=== PATIENT | male | born 1945 | race Caucasian/White ===

== ENCOUNTER 2019-12-06 07:40 | Outpatient (CLI) | payer MEDICARE, OTHER, SELFPAY ==
--- NOTE | 2019-12-06 08:15 | XRR_ITS ---
PROCEDURE INFORMATION: Exam: XR Abdomen, 1 View Exam date and time: 12/06/2019 7:47 AM Age: 74 years old Clinical indication: Condition or disease; Other: Calculus of kidney and ureter TECHNIQUE: Imaging protocol: XR of the abdomen. Views: Frontal supine view of the abdomen. 1 View. COMPARISON: CR XR KUB [id number] 09/07/2019 8:01 AM FINDINGS: Gastrointestinal tract: Unremarkable. No bowel dilation. Vasculature: Right pelvic phleboliths. Bones/joints: Bilateral lower lumbar facet primary osteoarthritis. L4-L5 and L5-S1 degenerative disc disease. Lumbar spine vertebral body marginal osteophytes are noted at multiple levels. XR/XR KUB [id number] IMPRESSION: No acute abdominal or pelvic abnormality identified.
== END 2019-12-06 07:41 | disposition home or self-care (01) ==
LOC: RAD 07:44
PROVIDERS: Family Provider Internal Medicine; PCP Internal Medicine; Visit Provider Urology
DX: N20.2 Calculus of kidney with calculus of ureter (principal)
CPT/HCPCS: 74018; 81001

== ENCOUNTER 2020-07-27 07:35 | Outpatient (CLI) | payer MEDICARE, OTHER, SELFPAY ==
--- NOTE | 2020-07-27 09:00 | XR_ITS ---
WS: [id number] KUB, 07/27/2020 Clinical Data: KIDNEY AND URETER STONE Comparison: KUB, 12/06/2019. Findings: There are bilateral calcifications overlying the kidneys. The detail is obscured by colon gas and fec al material. There is a fecal impaction. Phleboliths are seen in the pelvis. Osteoarthritis of the lumbar vertebral bodies is moderate. XR/XR KUB [id number] Impression: Bilateral calcifications overlying both kidneys unchanged.
== END 2020-07-27 07:36 | disposition home or self-care (01) ==
LOC: RAD 07:40
PROVIDERS: PCP Internal Medicine; Visit Provider Urology
DX: N20.2 Calculus of kidney with calculus of ureter (principal)
CPT/HCPCS: 74018; 81001

== ENCOUNTER 2021-04-10 13:55 | Outpatient (CLI) | payer MEDICARE, OTHER, SELFPAY ==
--- NOTE | 2021-04-10 14:30 | XRR_ITS ---
PROCEDURE INFORMATION: Exam: XR Abdomen Exam date and time: 04/10/2021 2:30 PM Age: 75 years old Clinical indication: Kidney stone follow up; Kidney stones in bilateral kidneys. TECHNIQUE: Imaging protocol: XR of the abdomen. Views: Frontal supine view of the abdomen. 1 View. COMPARISON: CR XR KUB [id number] 07/27/2020 7:42 AM FINDINGS: Bilateral renal stones are again noted. Probable phleboliths in the right pelvis. Nonobstructive bowel gas pattern. Possible cholelithiasis. XR/XR KUB [id number] IMPRESSION: 1. Bilateral renal stones are again noted. 2. Possible cholelithiasis.
== END 2021-04-10 13:56 | disposition home or self-care (01) ==
LOC: RAD 14:00
PROVIDERS: PCP Internal Medicine; Visit Provider Urology
DX: N20.9 Urinary calculus, unspecified (principal)
CPT/HCPCS: 74018; 81003

== ENCOUNTER 2021-10-10 07:29 | Outpatient (CLI) | payer MEDICARE, OTHER, SELFPAY ==
--- NOTE | 2021-10-10 07:37 | XR_ITS ---
WS: [id number] KUB, AP view, 10/10/2021 Clinical Data: CALCULUS OF KIDNEY AND URETER Comparison: KUB, 04/10/2021. Findings: No abnormal intraabdominal masses are seen. There is no dilatated small bowel or evidence of obstruct ion. There are bilateral renal calculi. There is a moderate amount of fecal material. The bladder is full. There are phleboliths in the true pelvis. XR/XR KUB [id number] Impression: Bilateral renal calculi.
== END 2021-10-10 07:30 | disposition home or self-care (01) ==
PROVIDERS: PCP Internal Medicine; Visit Provider Urology
DX: N20.2 Calculus of kidney with calculus of ureter (principal); N40.1 Benign prostatic hyperplasia with lower urinary tract symptoms
CPT/HCPCS: 74018; 81003

== ENCOUNTER 2022-10-10 07:12 | Outpatient (CLI) | payer MEDICARE, OTHER, SELFPAY ==
--- NOTE | 2022-10-10 07:21 | XR_ITS ---
WS: [id number] KUB, AP view, 10/10/2022 Clinical Data: Calculus of Kidney Comparison: KUB, 10/10/2021 Findings: No abnormal intraabdominal masses are seen. There is no dilatated small bowel or evidence of obstruct ion. There are bilateral renal calculi. The kidneys are obscured by overlying bowel gas. There are phlebol iths in the pelvis. XR/XR KUB [id number] Impression: Bilateral renal calculi.
== END 2022-10-10 07:13 | disposition home or self-care (01) ==
LOC: RAD 07:15
PROVIDERS: PCP Internal Medicine; Visit Provider Urology
DX: N40.1 Benign prostatic hyperplasia with lower urinary tract symptoms; N20.2 Calculus of kidney with calculus of ureter
CPT/HCPCS: 74018; 81003; 99213

== ENCOUNTER 2023-01-07 15:38 | Outpatient (CLI) | payer MEDICARE, OTHER, SELFPAY ==
--- NOTE | 2023-01-07 16:01 | XRR_ITS ---
PROCEDURE INFORMATION: Exam: XR Abdomen Exam date and time: 01/07/2023 4:05 PM Age: 77 years old Clinical indication: Generalized; Patient HX: Abdominal pain, for 1 1/2 weeks, HX crohn's disease; Additional info: Generalized abdominal pain TECHNIQUE: Imaging protocol: Radiologic exam of the abdomen. Views: Frontal supine view of the abdomen. 1 View. COMPARISON: CR XR KUB [id number] 10/10/2021 7:47 AM FINDINGS: Gastrointestinal tract: Normal. No bowel dilation. Bones/joints: Unremarkable. Calcified caliceal stones are present in the central left collecting system measuring 5.5 cm. Multiple stones are seen in the lower right renal collecting system largest measures 6.2 mm. No stones are seen in the projected path of the urinary outflow tract. XR/XR abdomen 1V* [id number] IMPRESSION: No acute findings. Calcified urinary tract stones as noted above
== END 2023-01-07 15:39 | disposition home or self-care (01) ==
LOC: RAD 15:44
PROVIDERS: PCP Internal Medicine; Visit Provider Internal Medicine
DX: R10.84 Generalized abdominal pain (principal)
CPT/HCPCS: 74018

== ENCOUNTER → 2023-02-11 07:14 | Outpatient (BNVA) | payer MEDICARE, OTHER, SELFPAY | PROVIDERS: PCP Internal Medicine; Visit Provider Urology | DX: N40.1 Benign prostatic hyperplasia with lower urinary tract symptoms (principal) | CPT/HCPCS: 51741; 51798; 81003; 99213 ==

== ENCOUNTER → 2023-10-27 09:10 | Outpatient (BNVA) | payer MEDICARE, OTHER, SELFPAY | PROVIDERS: PCP Internal Medicine; Visit Provider Podiatrist Foot & Ankle Surgery | DX: L60.3 Nail dystrophy (principal) | CPT/HCPCS: 99203 ==

== ENCOUNTER 2024-01-01 07:02 | Outpatient (CLI) | payer OTHER, SELFPAY ==
--- NOTE | 2024-01-01 | ECG_ITS ---
[facility] Test Date: 2024-01-01 Pat Name: Zak Sanders Department: Room: Gender: Male Supervisor Dumping: : 1945 Requested By: Yoanna Baldwin Order Number: [id number] Gale MD: Jake Juarez M.D. Interpretive Statements NAME OF STUDY: EXERCISE SESTAMIBI STRESS TEST INDICATION: Chest Pain PROCEDURE: The baseline electrocardiogram showed normal sinus rhythm with normal ST-Ts. At the baseline, the patient's blood pressure was 144/80 mm Hg with a heart rate of 58. The patient exercised for 6 minutes on a standard [place] protocol. Patient attained a maximum heart rate of 128 beats per minute(90% of the maximum predicted heart rate) with a blood pressure at the peak exercise of 166/89 mm Hg. The EKG at the peak exercise revealed no significant changes. Patient did not have any chest pain or any significant arrhythmis with the exercise Sestamibi was injected 1 minute prior to the peak exercise During the recovery phase, there were no new changes. Blood pressure at the end of the recovery phase was 183/72 mm Hg with a heart rate of 87 per minute. CONCLUSION: 1. No significant EKG changes with the [treadmill exercise 2. No exercise-induced chest pain or cardiac arrhythmia 3. Slightly impaired exercise tolerance, attained a maximum of 7.0 METs 4. Sestamibi/Sestamibi perfusion results pending; see separate report. Electronically Signed On 01-04-2024 20:25:00 CDT by Jake Juarez M.D. [email or web address]
[2024-01-01 07:15] VITALS: BMI 25.9
--- NOTE | 2024-01-01 07:21 | NMCV_ITS ---
NM ángel perf SPECT r/s* [id number] Zak Sanders Age: 78 Gender: M : 1945 Exam Date: 01/01/2024 07:51 Ordering Phys: Yoanna Baldwin MD Technologist: VIOLETTA Richardson Exam Location: [facility] Indications: CHEST PAIN STRESS TEST Please see separate stress test report in [facility] for full findings IMAGE PROTOCOL Rest/Stress 1 Exercise Day Radiopharmaceutical Dose (mCi) Administration Site Administered by Rest: Tc-99m 10.5 IV VIOLETTA Aldrich Sestamibi Stress:Tc-99m 32.8 IV VIOLETTA Aldrich Sestamibi Rest: 01-Jan-2024 60 Discovery 630 Stress: 01-Jan-2024 30 Discovery 630 Radiopharmaceutical was injected at 85 % maximum heart rate. Images obtained in supine and prone position. SPECT RESULTS Technical Quality: Excellent Raw Data Analysis: Normal Image Corrections: No attenuation or motion correction applied Summed Stress Score: 3 Summed Rest Score: 8 Summed Difference Score: 0 PERFUSION FINDINGS Moderate area of minimal to moderately decreased tracer uptake in the mid inferior and inferolateral wall region. No significant reversibility was noted in this region. With the prone imaging there was no significant perfusion abnormalities were noted. FUNCTIONAL RESULTS (calculated via Gated SPECT) Stress Image LV EF (%): 71 Stress EDV (mL):80 TID: 0.7 Stress ESV (mL):23 FUNCTIONAL FINDINGS: Segmental wall motion analysis revealing no gross wall motion abnormalities IMPRESSIONS 1. Myocardial perfusion imaging revealing moderate area of minimal to moderately decreased persistent tracer uptake in the inferior and inferolateral regions suggesting myocardial scarring versus attenuation artifact 2. Normal LV ejection fraction 71%. 3. LV wall motion analysis revealing no gross wall motion abnormalities. 4. Normal LV volume Low probability for coronary ischemia, based on the above findings Dr Jake Juarez MD FACC (Electronically Signed) Final Date: 01 January 2024 14:07 S
[2024-01-01 08:55] VITALS: BP 183/72; PULSE 87
== END 2024-01-01 07:03 | disposition home or self-care (01) ==
LOC: CDL 07:03
PROVIDERS: PCP Internal Medicine; Visit Provider Family Medicine
DX: R07.89 Other chest pain (principal)
CPT/HCPCS: 36415; 78452; 93017; 96374; A9500

== ENCOUNTER → 2024-03-15 08:39 | Outpatient (BNVA) | payer OTHER, SELFPAY | PROVIDERS: PCP Internal Medicine; Visit Provider Podiatrist Foot & Ankle Surgery | DX: L60.3 Nail dystrophy (principal) | CPT/HCPCS: 99213 ==

== ENCOUNTER 2024-09-01 14:56 | Outpatient (CLI) | payer MEDICARE, OTHER, SELFPAY ==
--- NOTE | 2024-09-01 14:58 | CT_ITS ---
WS: [id number] CT ABDOMEN PELVIS TECHNIQUE: Contrast-enhanced CT of the abdomen and pelvis with coronal and sagittal reformatted image s. CLINICAL INFORMATION: RLQ ABDOMINAL PAIN COMPARISON: None. DLP: 405.[address] scans at [facility] use at least one of these dose optimization techniques: automated e xposure control; mA and/or kV adjustment per patient size (includes targeted exams where dose is matc hed to clinical indication); or iterative reconstruction. FINDINGS: LEFT renal cyst 5.3 x 5.6 cm. Smaller RIGHT renal cysts. RIGHT lower pole calculi measuring 5 to 6 mm . Mild dilatation of the RIGHT renal pelvis with urothelial enhancement. RIGHT ureter is otherwise de compressed. Small nonobstructing LEFT renal parenchymal calculi. Enlarged enhancing prostate measurin g 4.4 cm. Recommend correlation PSA. Hepatomegaly. Diffuse fatty infiltration of the liver. Cholelithiasis. Normal portal vein and splenic vein. Normal spleen. Adrenal glands are normal. Lung bases are well aerated. Normal GE junction. Normal pancreatic parench ymal enhancement. Normal caliber abdominal aorta. Celiac and SMA are patent. Mild aortic calcificatio n. Sigmoid diverticulosis. Normal appendix. No periaortic lymphadenopathy. No pelvic lymphadenopathy. CT/CT abdomen pelvis w con* [id number] IMPRESSION: 1. RIGHT renal pelvic calculus along the inferior renal pelvis measuring 6 mm with mild dilatation of the RIGHT renal pelvis with urothelial enhancement. Mil d dilatation of the UPJ. RIGHT ureter is otherwise decompressed. Findings wil tible with partial obstruction. Recommend urology consultation. Additional mahamed cent calyceal tip calculus measuring 5 mm. 2. Nonobstructing LEFT renal calculus measuring 6 mm. 3. Enlarged enhancing prostate measuring 4.4 cm. Recommend correlation PSA. 4. Diffuse fatty infiltration of the liver. Hepatomegaly. 5. Cholelithiasis. No gallbladder wall thickening or pericholecystic fluid. 6. Bilateral renal cysts largest in the LEFT measuring 5.6 x 5.3 cm. 7. No other acute findings.
[2024-09-01] MEDS: iohexol 350 mg/mL 500 mL Btl (per mL) PO (15:54)
[2024-09-01] MEDS: iohexol 350 mg/mL 500 mL Btl (per mL) IV (16:06)
== END 2024-09-01 14:57 | disposition home or self-care (01) ==
LOC: RAD 14:57
PROVIDERS: PCP Internal Medicine; Visit Provider Internal Medicine
DX: N20.0 Calculus of kidney (principal); N40.0 Benign prostatic hyperplasia without lower urinary tract symptoms; K76.0 Fatty (change of) liver, not elsewhere classified; K80.20 Calculus of gallbladder without cholecystitis without obstruction; Q61.02 Congenital multiple renal cysts
CPT/HCPCS: 74177

== ENCOUNTER 2024-12-27 16:09 | Outpatient (CLI) | payer MEDICARE, OTHER, SELFPAY ==
--- NOTE | 2024-12-27 16:19 | US_ITS ---
WS: [id number] RENAL ULTRASOUND HISTORY: hydro of rt kidney COMPARISON: 09/01/2024 CT TECHNIQUE: 2-D and color Doppler imaging of the kidney submitted. Right kidney: 11.4 cm x 5.4 cm x 5.4 cm. Cortex: 0.9 cm Normal size kidney with mild diffuse thinning of the renal cortex. Parapelvic cyst upper pole of the RIGHT kidney. No obvious hydronephrosis. There may be very slight pelviectasis. Patient did have a mild hydronephrosis on 09/01/2024. Left kidney: 11.8 cm x 4.8 cm x 5.8 cm. Cortex: 0.9 cm Normal size kidney with mild cortical thinning. Complex cyst superior pole measures 4.6 x 5.2 x 5.7 cm. No hydronephrosis. Aorta: Atherosclerosis aorta. No aneurysm. Urinary Bladder: Nondistended. US/US renal BI* [id number] IMPRESSION: 1. No hydronephrosis identified. There may be very slight pelviectasis on the RIGHT. 2. Bilateral renal cysts. 3. Subtle hydronephrosis is not excluded as noted on the prior CT from 024. If there is continued concern for an minimal hydronephrosis consider follo w-up CT abdomen and pelvis, noncontrast.
== END 2024-12-27 16:10 | disposition home or self-care (01) ==
LOC: RAD 16:13
PROVIDERS: PCP Internal Medicine; Visit Provider Nurse Practitioner Family
DX: N13.30 Unspecified hydronephrosis (principal); N28.1 Cyst of kidney, acquired; R93.421 Abnormal radiologic findings on diagnostic imaging of right kidney; R93.422 Abnormal radiologic findings on diagnostic imaging of left kidney; I70.0 Atherosclerosis of aorta
CPT/HCPCS: 76770

== ENCOUNTER 2025-06-10 13:40 | Outpatient (CLI) | payer MEDICARE, OTHER, SELFPAY ==
--- NOTE | 2025-06-10 13:48 | USR_ITS ---
PROCEDURE INFORMATION: Exam: US Retroperitoneal, Complete, Kidneys and Bladder Exam date and time: 06/10/2025 2:25 PM Age: 79 years old Clinical indication: Condition or disease; Kidney or ureter condition; Other: Nephrolithiasis TECHNIQUE: Imaging protocol: Real-time ultrasound of the retroperitoneum with image documentation. Complete exam focused on the bilateral kidneys and urinary bladder. COMPARISON: US renal BI* [id number] 12/27/2024 4:22 PM FINDINGS: Right kidney: Mild cortical thinning noted. There is a simple cyst in the right mid kidney measuring approximately 3 cm, with small wall calcification measuring 1.1 cm. No stones. No hydronephrosis. Left kidney: Left kidney samples cyst measuring 6.1 cm noted. No stones. No hydronephrosis. Urinary bladder: Mild cortical thinning noted. The urinary bladder demonstrates increased trabeculation of the wall, likely representing changes of chronic bladder outlet obstruction. Left ureteral jet seen. Right ureteral jet was not visualized. Prostate: The prostate measures 5.5 x 4.5 x 3.7 cm/48 mL. Small cyst measuring 1.3 cm noted in the prostate. US/US renal BI* [id number] IMPRESSION: No acute findings.
== END 2025-06-10 13:41 | disposition home or self-care (01) ==
LOC: RAD 13:43
PROVIDERS: PCP Internal Medicine; Visit Provider Urology
DX: N20.0 Calculus of kidney (principal); N42.83 Cyst of prostate; N28.1 Cyst of kidney, acquired
CPT/HCPCS: 76770

== ENCOUNTER 2025-07-05 09:39 | Outpatient (CLI) | payer MEDICARE, OTHER, SELFPAY ==
--- NOTE | 2025-07-05 09:48 | XR_ITS ---
WS: [id number] Exam: XR KUB [id number] Date/Time of Exam: 07/05/2025 10:00 AM Reason For Exam: NEPHROLITHIASIS Calcifications superimpose both renal silhouettes and may represent renal calculi. No bowel obstruction or free air. No sign of organ enlargement. Degenerative changes and spondylosis of the lumbar spine. 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 XR/XR KUB [id number] IMPRESSION: 1. Small calcification superimposes both renal silhouettes and may represent re nal calculi. 2. No acute abdominal process.
== END 2025-07-05 09:40 | disposition home or self-care (01) ==
PROVIDERS: PCP Internal Medicine; Visit Provider Urology
DX: N20.0 Calculus of kidney (principal)
CPT/HCPCS: 74018